=== PATIENT | female | born 1950 ===

== ENCOUNTER 2017-03-09 12:16 | Day surgery (SDC) | payer MEDICARE ==
[2017-03-06 14:21] VITALS: BMI 25.3
[2017-03-09 12:55] LABS: BASO # 0.03 K/mm3 (0.0-2.0); BASO % 0.5 % (0.0-3.0); EOS # 0.1 (0.0-0.7); EOS % 1.6 % (1.5-5.0); GRAN # 2.82 (1.4-6.5); GRAN % 48.9 % (50.0-68.0); HEMOGLOBIN 12.4 g/dL (12.0-16.0); LYMPH # 2.5 (1.2-3.4); LYMPH % 42.6 % (22.0-35.0); MEAN CELL VOLUME 81.5 fl (80.0-105.0); MEAN CORPUSCULAR HEMOGLOBIN 25.5 pg (25.0-35.0); MEAN CORPUSCULAR HGB CONC 31.2 g/dl (31.0-37.0); MEAN PLATELET VOLUME 10.5 fl (7.0-11.0); MONO # 0.4 (0.1-0.6); MONO % 6.4 % (1.0-6.0); RBC 4.87 10^6/uL (3.5-6.1); RED CELL DISTRIBUTION WIDTH 14.1 % (11.5-14.5); WHITE BLOOD COUNT 5.8 10^3/ul (4.5-11.0)
[2017-03-09 13:06] LABS: BLOOD UREA NITROGEN 15 mg/dL (7-21); CALCIUM 10.4 mg/dL (8.4-10.5); GFR AFRICAN-AMERICAN > 60; GFR NON-AFRICAN AMERICAN > 60; INR 0.93 (0.93-1.08); PROTHROMBIN TIME 10.7 SECONDS (9.4-12.5)
[2017-03-09] MEDS ORDERED: Midazolam 2 MG/2 ML VIAL ONE (16:45)
[2017-03-09] MEDS ORDERED: Oxycodone/Acetaminophen 5/325 mg Tab PO PRN (17:34)
[2017-03-09] MEDS ORDERED: Sodium Chloride 0.45% 1,000 ML IV SCH (17:45)
--- NOTE | 2017-03-09 18:00 | US ---
PROCEDURE: Ultrasound-guided right thyroid fine needle aspiration biopsy. CLINICAL HISTORY: Dominant 2.4 cm right thyroid nodule. Hypervascular. [place] PHYSICIAN(S): Romero Burger M.D. TECHNIQUE: The relative risks and indications for the procedure were explained to the patient and consent obtained. The patient was placed supine on the stretcher with the neck extended and preliminary sonography of the thyroid performed. This reveal lobulated 2.4 cm hypoechoic nodule at the junction of the isthmus and right thyroid. Additional smaller nodules are seen bilaterally. The neck was prepped and draped in the usual sterile fashion. Conscious sedation and monitoring were provided throughout the procedure by a nurse. 1% Xylocaine was used to anesthetize the skin and soft tissues at the access site. Three passes with a 22-gauge needle were performed under ultrasound guidance for fine needle aspiration of the 2.4 cm hypoechoic nodule in the right thyroid. The slides were reviewed by pathology and deemed adequate. The patient tolerated the procedure well. IMPRESSION: 1. Ultrasound guided fine needle aspiration of a 2.4 cm hypoechoicnodule in the right thyroid.
[2017-03-09 18:32] VITALS: BP 139/71; PULSE 66; RESP 20; TEMP 97.9; O2SAT 95
== END 2017-03-09 19:15 | disposition home or self-care (01) ==
LOC: SDS 12:16
PROVIDERS: ATTEND Radiology Vascular & Interventional Radiology
DX: E04.1 Nontoxic single thyroid nodule (principal); I10 Essential (primary) hypertension; H40.9 Unspecified glaucoma
CPT/HCPCS: 10022; 36415; 80048; 85025; 85610; 85730; 88173; 88305; J2250; J2405; J3010; J7030

== ENCOUNTER 2018-05-24 09:03 | Outpatient (CLI) | payer MEDICARE | END 2018-05-24 09:04 | disposition home or self-care (01) | LOC: RAD 09:04 ==

== ENCOUNTER 2018-07-05 14:43 | Outpatient (CLI) | payer MEDICARE | END 2018-07-05 14:44 | disposition home or self-care (01) | LOC: RAD 14:43 | DX: M79.604 Pain in right leg (principal) ==